=== PATIENT | female | born 2000 | race Caucasian/White ===

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

== ENCOUNTER 2024-12-13 15:44 | Emergency (ER) | payer SELFPAY ==
[~2024-12-13] VITALS: Ht 165.1 cm; Wt 79.4 kg
[2024-12-13] MEDS ORDERED: AMOX-CLAV 875-1 EACH PO (16:04)
[2024-12-13] MEDS ORDERED: Amoxicillin/Clavulanate Pota 875 MG TAB PO ONE (16:05)
== END 2024-12-13 16:40 | disposition home or self-care (01) ==
LOC: ED 15:44
DX: H66.92 Otitis media, unspecified, left ear (principal); J02.9 Acute pharyngitis, unspecified; Z79.899 Other long term (current) drug therapy